=== PATIENT | male | born 1955 | race African-American/Black ===

== ENCOUNTER 2016-12-26 09:14 | Emergency (ER) | payer OTHER ==
[~2016-12-26] VITALS: Ht 167.6 cm; Wt 99.8 kg
--- NOTE | ~2016-12-26 | CR210 ---
[facility] A Service of [facility] RADIOLOGY TEXT RESULTS PATIENT: MEKA DOSHI LOCATION: [place] : 55 UNIT #: [id number] AGE: [address]: Caity An SEX: M ORDER DR: [id number] [facility] [address] [place], [place] [address] [id number] E MR#: [id number] Acc #: [id number] NAME: MEKA DOSHI : 1955 SEX: M STUDY DATE/TIME: 12/26/2016 09:50 UNIT: [facility] ROOM: STUDY DESCRIPTION: CR Ribs Uni 2 View W PA Ch Lt Attending Physician: Caity An P.A.-C. Ordering Physician: Caity An P.A.-C. Primary Care Physician: Tomasa Zaldivar M.D. MEDICAL IMAGING REPORT This report is preliminary unless electronic signature is present EXAM Chest with left rib series 12/26/2016 0950 hours HISTORY Patient fell hitting ribs on trailer hitch on 12/23/2016. The left rib pain. COMPARISON None. FINDINGS Upright chest demonstrates normal heart size. Mediastinal and hilar contours are normal. The lungs are clear and there are no effusions. AP and oblique views of the ribs demonstrate acute fractures of the anterior eighth, ninth and tenth rib fractures. 1 oblique view suggests some bowing of the anterior sixth and seventh ribs which could also be fracture. IMPRESSION 1. Acute minimally angulated fractures anterior eighth, ninth and tenth ribs on the left. 1 steep oblique view demonstrates some bowing deformity of the anterior sixth and seventh ribs which could indicate fractures at these ribs as well. There is no pleural effusion or pneumothorax. Dictated by... Karen Maguire M.D. THIS IS AN ELECTRONICALLY VERIFIED REPORT Karen Maguire M.D. at 12/26/2016 6:56 PM MARY ANN/matt [facility] A Service of [facility] RADIOLOGY TEXT RESULTS PATIENT: MEKA DOSHI LOCATION: [place] : 55 UNIT #: [id number] AGE: [address]: Caity An SEX: M ORDER DR: TD: 12/26/2016 15:35 JOB #: [id number] MEDICAL IMAGING REPORT Page 1 of 1 COPY
[~2016-12-26 09:14] MED LIST: AMLODIPINE-BENA1 CAP PO; ASPIRIN81 MG PO
== END 2016-12-26 10:45 | disposition home or self-care (01) ==
LOC: CFTX 09:14 → CED 09:14 → CFTX 10:13
DX: S22.42XA Multiple fractures of ribs, left side, initial encounter for closed fracture (principal); W20.8XXA Other cause of strike by thrown, projected or falling object, initial encounter; Y92.098 Other place in other non-institutional residence as the place of occurrence of the external cause
CPT/HCPCS: 71101; 99285

== ENCOUNTER 2017-02-03 07:57 | Emergency (ER) | payer OTHER ==
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
== END 2017-02-03 10:05 | disposition home or self-care (01) ==
LOC: CED 07:57
DX: M54.16 Radiculopathy, lumbar region (principal); M16.12 Unilateral primary osteoarthritis, left hip; I10 Essential (primary) hypertension; Z87.891 Personal history of nicotine dependence
CPT/HCPCS: 72100; 73502; 96372; 99283; J1885